=== PATIENT | female | born 1990 | race Caucasian/White ===

== ENCOUNTER 2020-06-27 04:54 | Inpatient (IN) ==
[2020-06-27] MEDS ORDERED: OXYTOCIN 30 UNITS/500 ML BAG IV PRN ×4 (06:06→16:06)
[2020-06-27] MEDS ORDERED: LACTATED RINGER'S 1,000 ML IV PRN ×2 (06:06→10:52)
[2020-06-27] MEDS ORDERED: PENICILLIN G POTASSIUM 6 MU in DEXTROSE 5% 250 ML IV ONE (06:30)
[2020-06-27 06:34] LABS: Hematocrit (blood only) 32.3 % (37-47); Hemoglobin 11.2 g/dL (12.0-16.0); Mean Corpuscular Hemoglobin 32.8 pg (25-34); Mean Corpuscular Hgb Conc 34.7 g/dL (32-36); Mean Corpuscular Volume 94.7 fL (80-100); Mean Platelet Volume 10.2 fL (7.4-10.4); Platelet Count 176 K/uL (130-400); RDW Coefficient of Variation 13.1 % (11.5-14.5); RDW Standard Deviation 44.6 fL (36.4-46.3); Red Blood Count 3.41 M/uL (4.2-5.4); White Blood Count 8.97 K/uL (4.8-10.8)
[2020-06-27] MEDS ORDERED: BUTORPHANOL TARTRATE 1 MG/ML VIAL IV PRN ×2 (07:36→10:18)
[2020-06-27 08:47] LABS: Amphetamines+Metham, Urine Neg (Neg); Barbiturates, Urine Neg (Neg); Benzodiazepine, Urine Neg (Neg); Cocaine, Urine Neg (Neg); MDMA (Ecstacy), Urine Neg (Neg); Methadone, Urine Neg (Neg); Opiate, Urine Neg (Neg); Phencyclidine, Urine Neg (Neg)
[2020-06-27] MEDS ORDERED: BUTORPHANOL TARTRATE 1 MG/ML VIAL ONE (10:20)
[2020-06-27] MEDS: PENICILLIN G POTASSIUM 3 MU in DEXTROSE 5% 100 ML IV PRN ×2 (10:53→14:44)
--- NOTE | 2020-06-27 11:02 | Obstetrical Progress Note ---
Date of Service June 27, 2020 Assessment & Plan Admission and Anticipated Discharge Date Admission Date: June 27, 2020 Subjective Admit Note 29 F P2012 at 40 weeks admitted in early labor. GBS is positive. Cervix 4/80/- 2/vertex/posterior/intact/soft. Contractions irregular. FHT CAt 1. Will start Oxytocin to augment labor. Results & Data ([facility]) Vital Signs (Past 12 Hours) Vital Signs Temp Pulse Resp BP 06/27/20 10:30 36.7 C 77 20 117/69 06/27/20 07:11 76 109/67 06/27/20 05:17 36.6 C 75 18 116/74
[2020-06-27] MEDS ORDERED: BUPIVACAINE 0.25% 30 ML VIAL ONE (11:04)
[2020-06-27] MEDS ORDERED: ePHEDrine sulfate 50 MG/ML AMP ONE (11:04)
[2020-06-27] MEDS ORDERED: fentaNYL citrate 100 MCG/2 ML VIAL ONE (11:05)
[2020-06-27] MEDS ORDERED: fentaNYL 2MCG/ML ROPIV 1.25MG/ML 100 ML BAG EPI ONE (11:05)
[2020-06-27] MEDS ORDERED: fentaNYL 2MCG/ML ROPIV 1.25MG/ML 100 ML BAG EPI PRN (11:44)
[2020-06-27] MEDS ORDERED: ePHEDrine sulfate 50 MG/ML AMP IV PRN (11:44)
[2020-06-27] MEDS ORDERED: DiphenhydrAMINE HCL 50 MG/ML VIAL IV PRN (11:44)
[2020-06-27] MEDS ORDERED: NALOXONE HCL 1 MG in SODIUM CHLORIDE 0.9% 1000ML 1,000 ML IV PRN (11:44)
[2020-06-27] MEDS ORDERED: NALOXONE HCL 0.4 MG/1 ML VIAL/CARP IV PRN (11:44)
--- NOTE | 2020-06-27 11:44 | Anesthesiology Consultation ---
Date of Service June 27, 2020 Assessment & Plan ASA ASA3 Proposed Anesthesia Anesthesia Type: Labor Epidural Risk / Benefits Reviewed With: PT / POA / Parent / Guardian, Accepts Plan and Informed Consent Obtained History Height/Weight Height: 5 ft 9 in Weight: 72.121 kg Allergies Allergy/AdvReac Type Severity Reaction Status Date / Time ziprasidone [From Alvin] AdvReac Intermediate dystonic Verified 06/27/20 05:20 reaction Medications Home Medications Medication Instructions Recorded Confirmed Last Taken vit-iron fum-folic ac 1 tab PO DAILY 06/27/20 06/27/20 06/26/20 08:00 [ Vitamin] Active Medications Generic Name Dose Route Start Last Admin Trade Name Freq PRN Reason Stop Dose Admin Butorphanol Tartrate 1 mg 06/27/20 10:18 06/27/20 10:28 Stadol IV 07/27/20 10:17 1 mg ONCE PRN Administration Pain Lactated Ringer's 1,000 mls @ 125 mls/hr 06/27/20 06:06 06/27/20 11:45 Lr IV 06/29/20 06:05 999 mls/hr .Q8H PRN Titration L&D Protocol Protocol Penicillin G Potassium 3 mu/ 106 mls @ 100 mls/hr 06/27/20 06:08 06/27/20 12:05 Dextrose IV 07/11/20 06:07 Infused Q4H PRN Titration Give until delivery Oxytocin 30 units in 500 mls @ 2 mls/hr 06/27/20 10:59 06/27/20 11:18 Pitocin IV 06/29/20 10:58 0.12 units/hr .Q24H PRN 2 mls/hr Labor Induction/Augmentation Administration Protocol 0.12 UNITS/HR Past Medical History Medical History Flank pain (Acute) H/O bipolar disorder H/O borderline personality disorder History of suicide attempt patient reports happened a few times between the ages of 17 and 19 years old Upper respiratory infection (Inactive) Exercise / Class Metabolic Activity II 4-5 Yardwork/Stairs/Walk up hill Past Family History Family History Other Family history non-contributory Past Surgical History Surgical History H/O hand surgery left hand H/O oral surgery No pertinent past surgical history Past Anesthesia History No Hx of Anesthesia Complications and No Family Hx of Anesthesia Complications History of PONV No Hx of PONV and No Hx of Motion Sickness Social History Smoking Status: Current every day smoker tobacco type: cigarettes Smoking cigarettes per day: 10 Do You Dip or Chew Tobacco: No Hx Alcohol Use: No Hx Substance Use: Yes substance use type: marijuana Last Used Substance: Days (ago) Last Used Substance Other:: used yesterday (patient states she uses this instead of zoloft) Review of Systems denies fever/cough/ colds/ chest pain/ SOB/ LILIA Constitutional: no fever and no chills Respiratory: no cough and no dyspnea denies LILIA Cardiovascular: no chest pain and no dyspnea on exertion Physical Exam Vital Signs Last Vital Signs Temp 36.7 C 06/27/20 10:30 Pulse 78 06/27/20 12:13 Resp 20 06/27/20 10:30 BP 113/65 06/27/20 12:13 Pulse Ox 100 06/27/20 12:11 ENMT Mouth: no TMJ abnormality and no dentition abnormality Thyromental Distance: > or= 3.5 Finger Breadths Mallampati Class: II Neck neck extension not limited Respiratory normal respiratory effort; no respiratory distress Auscultation: lungs clear to auscultation bilaterally Cardiovascular Rate/Rhythm: regular rate and regular rhythm Neurologic moves all extremities Psychiatric Orientation: alert and oriented x 3 Testing Laboratory Results 06/27/20 06:14
[2020-06-27] MEDS ORDERED: ONDANSETRON INJ 2 MG/ML 2 ML VIAL IV PRN (11:45)
--- NOTE | 2020-06-27 13:50 | Obstetrical Progress Note ---
Date of Service June 27, 2020 Assessment & Plan Admission and Anticipated Discharge Date Admission Date: June 27, 2020 Physical Exam Genitourinary: Manual OB Exam: + cervical dilation 5 cm, + cervical effacement 90% and + amniotic fluid clear OB Exam Monitor Tracing: + external FHT monitor used, + external uterine monitor used, + category I and + normal FHT va riability epidural working well Results & Data ([facility]) Vital Signs (Past 12 Hours) Vital Signs Temp Pulse Resp BP Pulse Ox 06/27/20 13:46 82 100 06/27/20 13:41 85 100 06/27/20 13:36 83 100 06/27/20 13:31 87 99 06/27/20 13:29 84 107/62 06/27/20 13:26 76 100 06/27/20 13:21 83 100 06/27/20 13:16 79 99/54 L 100 06/27/20 13:11 79 100 06/27/20 13:06 73 100 06/27/20 13:01 72 100 06/27/20 13:00 72 18 113/62 06/27/20 12:56 70 100 06/27/20 12:51 70 100 06/27/20 12:46 74 100 06/27/20 12:45 18 06/27/20 12:44 78 98/61 L 06/27/20 12:41 69 107/65 100 06/27/20 12:40 83 105/68 06/27/20 12:38 80 109/68 06/27/20 12:36 69 100 06/27/20 12:35 76 98/57 L 06/27/20 12:33 72 110/59 L 06/27/20 12:32 83 114/56 L 06/27/20 12:31 81 99 06/27/20 12:29 75 109/65 06/27/20 12:28 75 106/62 06/27/20 12:26 76 108/72 99 06/27/20 12:24 72 116/55 L 06/27/20 12:22 72 104/61 06/27/20 12:21 74 99 06/27/20 12:20 71 111/67 06/27/20 12:17 82 116/67 06/27/20 12:16 81 114/65 99 06/27/20 12:13 78 113/65 06/27/20 12:11 75 109/63 100 06/27/20 12:09 74 105/63 06/27/20 12:07 74 114/74 06/27/20 12:06 71 116/72 100 06/27/20 12:02 80 119/74 06/27/20 12:01 78 100 06/27/20 11:56 82 100 06/27/20 11:51 86 100 06/27/20 11:46 79 100 06/27/20 11:41 80 100 06/27/20 11:36 74 100 06/27/20 11:31 85 100 06/27/20 11:26 81 100 06/27/20 11:19 74 111/72 06/27/20 10:30 36.7 C 77 20 117/69 06/27/20 07:11 76 109/67 06/27/20 05:17 36.6 C 75 18 116/74
--- NOTE | 2020-06-27 15:55 | Delivery Summary ---
Vaginal Delivery Summary Date of Service June 27, 2020 Vaginal Delivery Summary Delivery Note live female RISA over intact perineum with delayed cord clamping and Apgars 9/9 weight pending. Cord blood obtained followed by spontaneous delivery of intact placenta. Ankles with cord wrapped and tied in [id number]. No tears. EBL 100 ml. Final sponge and instrument count are correct. Mom and baby stable.
[2020-06-27] MEDS ORDERED: ACETAMINOPHEN 325 MG TAB PO PRN (16:06)
[2020-06-27] MEDS ORDERED: bisacodyL 10 MG SUPP PR PRN (16:06)
[2020-06-27] MEDS ORDERED: SUPERCREAM 0.870% 15 GM JAR EXT PRN (16:06)
[2020-06-27] MEDS ORDERED: DIPHTHERIA/TETANUS/PERTUSSIS 0.5 ML SYR/VIAL IM ONE (16:06)
[2020-06-27] MEDS ORDERED: BENZOCAINE 20% AER SPR 82.5 GM CAN EXT PRN (16:06)
[2020-06-27] MEDS ORDERED: HYDROCORTISONE ACETATE 25 MG SUPP PR PRN (16:06)
--- NOTE | 2020-06-27 18:32 | Anesthesiology Progress Note ---
Date of Service June 27, 2020 Anesthesia Post Procedure Vital Signs Vital Signs: Temp Pulse Resp BP Pulse Ox 06/27/20 18:29 75 113/70 06/27/20 18:14 68 130/62 06/27/20 17:44 61 115/72 06/27/20 17:30 18 06/27/20 17:29 67 101/68 06/27/20 17:14 72 108/73 06/27/20 17:00 18 06/27/20 16:59 65 108/72 06/27/20 16:44 64 106/67 06/27/20 16:30 18 06/27/20 16:29 67 112/68 06/27/20 16:15 18 06/27/20 16:14 72 108/66 06/27/20 16:00 74 20 110/60 06/27/20 15:57 75 107/58 L 06/27/20 15:36 95 H 100 06/27/20 15:33 80 87 L 06/27/20 15:31 89 100 06/27/20 15:29 88 110/58 L 06/27/20 15:26 82 100 06/27/20 15:21 77 100 06/27/20 15:16 70 100 06/27/20 15:11 84 100 06/27/20 15:06 84 100 06/27/20 15:01 36.5 C 71 18 100 06/27/20 15:00 75 111/60 06/27/20 14:56 82 100 06/27/20 14:51 80 100 06/27/20 14:46 77 93/52 L 100 06/27/20 14:41 81 100 06/27/20 14:36 81 99 06/27/20 14:31 80 99/49 L 99 06/27/20 14:26 82 99 06/27/20 14:21 81 99 06/27/20 14:16 81 100 06/27/20 14:15 79 95/51 L 06/27/20 14:11 80 100 06/27/20 14:06 96 H 100 06/27/20 14:01 82 100 06/27/20 13:59 80 105/65 06/27/20 13:56 75 100 06/27/20 13:51 79 100 06/27/20 13:49 82 110/57 L 06/27/20 13:47 36.3 C L 20 06/27/20 13:46 82 100 06/27/20 13:41 85 100 06/27/20 13:36 83 100 06/27/20 13:31 87 99 06/27/20 13:29 84 107/62 06/27/20 13:26 76 100 06/27/20 13:21 83 100 06/27/20 13:16 79 99/54 L 100 06/27/20 13:11 79 100 06/27/20 13:06 73 100 06/27/20 13:01 72 100 06/27/20 13:00 72 18 113/62 06/27/20 12:56 70 100 06/27/20 12:51 70 100 06/27/20 12:46 74 100 06/27/20 12:45 18 06/27/20 12:44 78 98/61 L 06/27/20 12:41 69 107/65 100 06/27/20 12:40 83 105/68 06/27/20 12:38 80 109/68 06/27/20 12:36 69 100 06/27/20 12:35 76 98/57 L 06/27/20 12:33 72 110/59 L 06/27/20 12:32 83 114/56 L 06/27/20 12:31 81 99 06/27/20 12:29 75 109/65 06/27/20 12:28 75 106/62 06/27/20 12:26 76 108/72 99 06/27/20 12:24 72 116/55 L 06/27/20 12:22 72 104/61 06/27/20 12:21 74 99 06/27/20 12:20 71 111/67 06/27/20 12:17 82 18 116/67 06/27/20 12:16 81 18 114/65 99 06/27/20 12:13 78 18 113/65 06/27/20 12:11 75 18 109/63 100 06/27/20 12:09 74 18 105/63 06/27/20 12:07 74 18 114/74 06/27/20 12:06 71 18 116/72 100 06/27/20 12:02 80 18 119/74 06/27/20 12:01 78 100 06/27/20 11:56 82 100 06/27/20 11:51 86 06/27/20 11:46 79 06/27/20 11:41 80 06/27/20 11:36 74 06/27/20 11:31 85 06/27/20 11:26 81 06/27/20 11:19 74 20 111/72 06/27/20 10:30 36.7 C 77 20 117/69 06/27/20 07:11 36.7 C 76 20 109/67 06/27/20 05:17 36.6 C 75 18 116/74 Pain Intensity Bilateral Abdomen: Pain Intensity: 3 Transfer of Care Handoff Completed per policy Notes Mental Status: alert / awake / arousable and participated in evaluation Patient Amnestic to Procedure: Yes Nausea / Vomiting: adequately controlled Pain: adequately controlled Airway Patency, RR, SpO2: stable & adequate BP & HR: stable & adequate Hydration State: stable & adequate Anesthetic Complications: no major complications apparent and Pt Satisfied with anesthetic care
[2020-06-27] MEDS: IBUPROFEN 600 MG TAB PO PRN (19:02)
[2020-06-27] MEDS: DOCUSATE SODIUM 100 MG CAP PO SCH (20:53)
[2020-06-28] MEDS: IBUPROFEN 600 MG TAB PO PRN ×3 (05:28→15:29)
[2020-06-28 07:17] LABS: Hematocrit (blood only) 34.8 % (37-47); Mean Corpuscular Hemoglobin 30.7 pg (25-34); Mean Corpuscular Hgb Conc 31.6 g/dL (32-36); Mean Corpuscular Volume 97.2 fL (80-100); Mean Platelet Volume 10.8 fL (7.4-10.4); Platelet Count 189 K/uL (130-400); RDW Coefficient of Variation 13.1 % (11.5-14.5); RDW Standard Deviation 46.4 fL (36.4-46.3); Red Blood Count 3.58 M/uL (4.2-5.4); White Blood Count 8.56 K/uL (4.8-10.8)
[2020-06-28] MEDS ORDERED: PRENATAL VITAMIN 1 TAB PO SCH (08:00)
[2020-06-28] MEDS: DOCUSATE SODIUM 100 MG CAP PO SCH (08:20)
[2020-06-28] MEDS ORDERED: NON-FORMULARY MEDICATION (Prenatal Vit-Iron Fum-Folic Ac [Prenatal Vitamin] 1 TAB) PO SCH (09:00)
--- NOTE | 2020-06-28 10:07 | Obstetrical Progress Note ---
Date of Service June 28, 2020 Assessment & Plan (1) Normal course: PPD #1 Pt doing well Wishes to be discharged home today Subjective Ambulation: ambulating normally Voiding: no voiding problems Passing Gas:: Yes Diet Tolerance:: regular diet Lochia:: Small Feeding Type:: breast feeding Review of Systems All systems reviewed & are unremarkable except as noted in HPI & below Physical Exam Constitutional WD/WN, vitals as above well developed and well nourished Eyes PERRL, conjunctivae normal, anicteric sclerae Neck trachea midline, no thyromegaly Respiratory normal respiratory effort, lungs clear to auscultation Auscultation: no crackles, no rales and no wheezes Cardiovascular RRR, no murmur, no edema Gastrointestinal (Abdomen) normal bowel sounds, soft, nontender, no hepatosplenomegaly Uterus is below umbilicus Musculoskeletal no cyanosis or clubbing, extremities motor strength 5/5 Skin no rashes, warm and dry Neurologic patellar DTR's 2+ bilat, sensation intact Psychiatric A+Ox3, euthymic affect Genitourinary normal external appearance Results & Data Vital Signs (Past 12 Hours) Vital Signs Temp Pulse Resp BP Pulse Ox 06/28/20 07:20 36.7 C 71 18 112/74 06/28/20 04:37 36.6 C 66 16 100/65 99 06/28/20 00:02 36.6 C 107 H 18 107/71 98
[2020-06-28] MEDS ORDERED: bisacodyL 5 MG TABEC PO SCH (20:00)
[2020-06-29 07:43] LABS: Marijuana Quant, GCMS Urine 238 ng/mL (<5)
== END 2020-06-28 17:09 | disposition home or self-care (01) | DRG 807 ==
LOC: OPB 04:54 → 4S1 05:02 → 4S2 19:27

== ENCOUNTER 2020-07-27 09:32 | Inpatient (IN) ==
--- NOTE | 2020-07-27 09:48 | Emergency Department Note ---
Impression & Plan Acute abdominal pain in left flank, Calculus of distal left ureter, Calculus of distal right ureter ED Provider Note CHIEF COMPLAINT: Left leg pain, urinary symptoms HISTORY OF PRESENTING ILLNESS: This is a 29-year-old female who presents to the emergency department by private vehicle with complaints of left flank pain that started this morning. Patient states yesterday she felt some urinary symptoms of urgency and frequency and thought she was developing a UTI. This morning she woke up with severe pain in her left side that radiates to her left lower abdomen. She states the pain is constant, sharp and stabbing, and rates the pain a 6/10. She took ibuprofen which did help with the pain somewhat. She denies any nausea or vomiting, diarrhea, constipation, vaginal discharge or ab normal bleeding. She denies any fevers but states she has had some chills. She knows that she is 1 month from a normal vaginal delivery and has been doing well recovering from this. She notes a history of kidney stones in the past, she states these were diagnosed while she was , but she never had any follow-up on this and does not really know what happened there. She has nev er seen a urologist. She denies any other symptoms of chest pain, shortness of breath, cough or hemoptysis, numbness/tingling or weakness in the lower extremities, bowel or bladder dysfunction, or any other complaints. REVIEW OF SYSTEMS: A complete 10 point review of systems was reviewed with the patient with pertinent positives and negatives as per history of present illness. All else were negative. PAST MEDICAL HISTORY: Anxiety, bipolar disorder, borderline personality disorder, kidney stones SOCIAL HISTORY: Lives at home ALLERGIES: Reviewed in chart with the patient PHYSICAL EXAM: CONSTITUTIONAL: Pleasant and cooperative. Nontoxic-appearing and in no acute distress. Well appearing and well nourished. HEENT: Normocephalic, atraumatic. NECK: Supple, full active range of motion without discomfort. RESPIRATORY: Clear to auscultation bilaterally with no wheezing, crackles, rhonchi or stridor. Equal expansion bilaterally. CARDIOVASCULAR: Regular rate and rhythm with no murmurs, rubs or gallops. Normal peripheral perfusion. No edema. GASTROINTESTINAL: Mildly tender to palpation in the left flank and left lower quadrant, no rebound tenderness or guarding. Abdomen is otherwise nontender, soft and nondistended. No palpable masses or HSM. Bowel sounds present in all quadrants. Mild left-sided CVA tenderness to percussion, no right-sided CVA tenderness. MUSCULOSKELETAL: Full range of motion of all joints without discomfort. INTEGUMENTARY: No rash or other significant dermatologic conditions noted. NEUROLOGIC: Alert and oriented X 4 with normal affect. Normal strength and sensation in all 4 extremities. Normal speech. Normal gait observed. ED COURSE AND MEDICAL DECISION MAKING: CC: Patient presenting with complaint of left flank pain, urinary symptom DIFFERENTIAL DIAGNOSIS: Includes, but not limited to UTI, pyelonephritis, ureteral calculus, diverticulitis, pancreatitis, ovarian cyst, ovarian torsion, complication, ectopic , among others. INTERPRETATION OF LABS: No leukocytosis, no anemia, normal platelets, no significant electrolyte abnormalities, normal renal function, normal liver enzymes and lipase. Serum negative. UA shows large blood and appears contaminated. Repeat urinalysis was performed by catheter specimen, this does not appear to be infected. A urine culture is pending. IMAGING: ABDOMEN AND PELVIS CT WITH IV CONTRAST CT DOSE: 274.40 mGy.cm HISTORY: L abd/flank pain, hx kid stones, 1 mon PP TECHNIQUE: Multiaxial CT images of the abdomen and pelvis were performed following the use of intravenous contrast. A dose lowering technique was utilized adhering to the principles of ALARA. COMPARISON STUDY: Renal ultrasound 05/24/2020. FINDINGS: The lung bases are clear. No pneumoperitoneum. No pneumatosis. No fractures within the visualized osseous structures. The liver, gallbladder, pancreas, spleen, and adrenal glands are unremarkable. There is a left retroaortic renal vein. No retroperitoneal lymphadenopathy. Bladder is not well- distended. This may account for the mild bladder wall thickening. Mildly enlarged and slightly heterogeneous uterus. This may be secondary to patient's post gravid state. Trace pelvic free fluid. Moderate well-formed stool within the colon. No bowel wall thickening or obstruction. No right hydronephrosis. However, there is a mildly dilated right ureter likely secondary to an obstructing 5 mm stone within the distal right ureter best seen on image 334. T his stone is approximately 8 cm from the right ureterovesical junction. There is also mild left hydroureteronephrosis secondary to an obstructing 5 mm stone within the distal left ureter. This stone is approximately 2 cm from the left ureterovesical junction. Delayed left nephrogram due to the obstructing stone. There is a 3 mm stone within the left kidney. IMPRESSION: 1. Bilateral distal ureteral stones as described above resulting in minimal right and mild left hydronephrosis. 2. Left-sided nephrolithiasis. 3. Mildly enlarged and slightly heterogeneous uterus. This may be secondary to the patient's post gravid state. 4. Trace pelvic free fluid. MEDICATION RECONCILIATION: I attest that I have personally reviewed the patient's current medication list. INITIAL VITAL SIGNS REVIEW: I reviewed the patient's initial vital signs and interpret them as follows: T: Afebrile; BP: Normotensive; HR: Within normal limits; RR: Within normal limits; Pulse Ox: Within normal limits on room air. Blood pressure screening: The patient was found to have normal blood pressure on screening and does not require follow-up for repeat blood pressure check. MDM SUMMARY: Patient was evaluated at bedside, history and physical exam performed. Patient is alert and oriented, in no acute distress, but appears uncomfortable from pain, tearful. She is resting in the stretcher. She is afebrile and nontoxic-appearing. She has left-sided CVA tenderness, flank pain and left lower quadrant pain on ex am. No acute abdomen. Urine sample at bedside noted to have gross hematuria. She does report a possible history of kidney stones, although she states she was never followed up for this and she also notes that she is 1 month . She denies any fevers or chills. Orders were placed at bedside for labs, UA and urine culture, IV fluid bolus for hydration, IV Toradol for pain, CT abdomen/pelvis with IV contrast to evaluate for abdominal/flank pain. Patient discussed with Dr. Miller, who agrees with my assessment, plan, and disposition. Labs and imaging reviewed as above, labs are fairly unremarkable, no leukocytosis, normal renal function. She is not . Initial UA appears contaminated. Patient reassessed, she states her pain is not any better after the Toradol, she was given [address] imaging shows bilateral obstructing distal ureteral stones that each measure about 5 mm with resulting mild hydronephrosis, worse on the left. Patient was reassessed again and updated on all of her results. She is sitting up on the side of the stretcher, rocking in pain and crying. She states the morphine did not help at all. I discussed the option of admission with the patient, given her bilateral obstructing stones and her severe pain that has been difficult to control, she was agreeable to this. Given the contaminated appearing urine, a repeat urinalysis was performed under sterile straight catheterization, this was reviewed and does not appear to be infected. She has not had any fevers and she has no leukocytosis, I do not suspect an infected stone. Will defer decision regarding any antibiotics to the inpatient team. I [facility] who agrees to evaluate the patient for admission. The patient was updated regarding this plan. She is more comfortable after receiving 1 mg IV Dilaudid, will continue to monitor. The patient was stable at time of admission. The chart was completed utilizing [employer] Speech voice recognition software. Grammatical errors, random word insertions, pronoun errors, and incomplete sentences are an occasional consequence of this system due to software limit ations, ambient noise, and hardware issues. Any formal questions or concerns about the content, text, or information contained within the body of this dictation should be directly addressed to the nurse practitioner for clarification. Past Med/Surg History Medical History Flank pain H/O bipolar disorder H/O borderline personality disorder History of suicide attempt patient reports happened a few times between the ages of 17 and 19 years old Upper respiratory infection Surgical History H/O hand surgery left hand H/O oral surgery Family History Other Family history non-contributory Social History Smoking Status: Current every day smoker Tobacco Type: Cigarettes Cigarettes Per Day: 10; Hx Alcohol Use: No Hx Substance Use: Yes Last Used Substance: Days (ago) Last Used Substance Other:: used yesterday (patient states she uses this instead of zoloft) Preferred Language: [place] Communication Ability: Effective 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 Beliefs That Will Affect Care: None marital status: Current Living Situation: Spouse and Family current occupational status: unemployed Feels Safe at Home: Yes Allergies Allergies Allergy/AdvReac Type Severity Reaction Status Date / Time ziprasidone [From Alvin] AdvReac Intermediate dystonic Verified 07/27/20 11:50 reaction Home Meds Home Medications Medication Instructions Recorded Confirmed Vitamin 1 tab PO DAILY 06/27/20 07/27/20 acetaminophen [Tylenol] 650 mg PO QID PRN 07/27/20 07/27/20 biotin 1,000 mcg PO DAILY 07/27/20 07/27/20 ibuprofen 600 mg PO Q4H PRN 07/27/20 07/27/20 Results & Data (ED) Vital Signs Vital Signs - 24 hr 07/27/20 09:40 07/27/20 10:17 Temperature 36.8 C Temperature Source Oral Pulse Rate 74 Respiratory Rate 20 Respiratory Effort / Characteristics Non-Labored Spontaneous Respiratory Depth Normal Respiratory Pattern Regular Blood Pressure 119/78 Blood Pressure Mean 91 Blood Pressure Position Sitting Pulse Oximetry 100 Oxygen Delivery Method Room Air Room Air Sepsis Recent Fever Within 48 Hours No Sepsis New/Unexplained Change in Mental Status N/A Sepsis Action Taken by Nursing No Action Required Laboratory Data Result diagrams: 07/27/20 10:05 07/27/20 10:05 Lab Results 07/27/20 07/27/20 07/27/20 Range/Units 09:55 10:05 10:05 WBC 8.18 (4.8-10.8) K/uL RBC 4.49 (4.2-5.4) M/uL Hgb 14.4 (12.0-16.0) g/dL Hct 43.1 (37-47) % MCV 96.0 (80-100) fL MCH 32.1 (25-34) pg MCHC 33.4 (32-36) g/dL RDW Std Deviation 43.9 (36.4-46.3) fL RDW Coeff of Dorota 12.5 (11.5-14.5) % Plt Count 203 (130-400) K/uL MPV 10.5 H (7.4-10.4) fL Immature Gran % (Auto) 0.1 % Neut % (Auto) 66.0 % Lymph % (Auto) 26.3 % [place] % (Auto) 5.7 % Eos % (Auto) 1.8 % Baso % (Auto) 0.1 % Neut # (Auto) 5.39 (1.4-6.5) K/uL Lymph # (Auto) 2.15 (1.2-3.4) K/uL [place] # (Auto) 0.47 (0.11-0.59) K/uL Eos # (Auto) 0.15 (0-0.5) K/uL Baso # (Auto) 0.01 (0-0.2) K/uL Immature Gran # (Auto) 0.01 (0.00-0.02) K/uL Sodium 140 (136-145) mmol/L Potassium 3.6 (3.5-5.1) mmol/L Chloride 109 H (98-107) mmol/L Carbon Dioxide 24 (21-32) mmol/L Anion Gap 7.0 (3-11) BUN 15 (7-18) mg/dl Creatinine 0.91 (0.6-1.2) mg/dl Est Cr Clr Drug Dosing 89.9 ml/min Est GFR ( Amer) 99.5 Est GFR (Non-Af Amer) 85.9 BUN/Creatinine Ratio 16.4 (10-20) Glucose 98 (70-99) mg/dl Calcium 9.2 (8.5-10.1) mg/dl Total Bilirubin 0.2 (0.2-1) mg/dl AST 12 L (15-37) U/L ALT 18 (12-78) U/L Alkaline Phosphatase 58 (45-117) U/L Total Protein 7.5 (6.4-8.2) gm/dl Albumin 3.9 (3.4-5.0) gm/dl Globulin 3.6 (2.5-4.0) gm/dl Albumin/Globulin Ratio 1.1 (0.9-2) Lipase 100 (73-393) U/L HCG, Qual (Negative) Urine Color [place] Urine Appearance Cloudy A (Clear) Urine pH 5.5 (4.5-7.5) Ur Specific [place] 1.020 (1.000-1.030) Urine Protein 1+ H (Negative) Urine Glucose (UA) Negative (Negative) Urine Ketones Negative (Negative) Urine Blood 3+ H (Negative) Urine Nitrite Negative (Negative) Urine Bilirubin Negative (Negative) Urine Urobilinogen Negative (Negative) Ur Leukocyte Esterase 1+ H (Negative) Urine WBC (Auto) 5-10 H (0-5) /hpf Urine RBC (Auto) >30 H (0-4) /hpf U Hyaline Cast (Auto) 1-5 (0-5) /lpf U Epithel Cells (Auto) >30 H (0-5) /lpf Urine Bacteria (Auto) Negative (Negative) 07/27/20 07/27/20 Range/Units 10:05 12:31 WBC (4.8-10.8) K/uL RBC (4.2-5.4) M/uL Hgb (12.0-16.0) g/dL Hct (37-47) % MCV (80-100) fL MCH (25-34) pg MCHC (32-36) g/dL RDW Std Deviation (36.4-46.3) fL RDW Coeff of Dorota (11.5-14.5) % Plt Count (130-400) K/uL MPV (7.4-10.4) fL Immature Gran % (Auto) % Neut % (Auto) % Lymph % (Auto) % [place] % (Auto) % Eos % (Auto) % Baso % (Auto) % Neut # (Auto) (1.4-6.5) K/uL Lymph # (Auto) (1.2-3.4) K/uL [place] # (Auto) (0.11-0.59) K/uL Eos # (Auto) (0-0.5) K/uL Baso # (Auto) (0-0.2) K/uL Immature Gran # (Auto) (0.00-0.02) K/uL Sodium (136-145) mmol/L Potassium (3.5-5.1) mmol/L Chloride (98-107) mmol/L Carbon Dioxide (21-32) mmol/L Anion Gap (3-11) BUN (7-18) mg/dl Creatinine (0.6-1.2) mg/dl Est Cr Clr Drug Dosing ml/min Est GFR ( Amer) Est GFR (Non-Af Amer) BUN/Creatinine Ratio (10-20) Glucose (70-99) mg/dl Calcium (8.5-10.1) mg/dl Total Bilirubin (0.2-1) mg/dl AST (15-37) U/L ALT (12-78) U/L Alkaline Phosphatase (45-117) U/L Total Protein (6.4-8.2) gm/dl Albumin (3.4-5.0) gm/dl Globulin (2.5-4.0) gm/dl Albumin/Globulin Ratio (0.9-2) Lipase (73-393) U/L HCG, Qual Negative (Negative) Urine Color Dark Yellow Urine Appearance Clear (Clear) Urine pH 5.0 (4.5-7.5) Ur Specific [place] > 1.045 H (1.000-1.030) Urine Protein Negative (Negative) Urine Glucose (UA) Negative (Negative) Urine Ketones Trace H (Negative) Urine Blood 3+ H (Negative) Urine Nitrite Negative (Negative) Urine Bilirubin Negative (Negative) Urine Urobilinogen Negative (Negative) Ur Leukocyte Esterase Negative (Negative) Urine WBC (Auto) 1-5 (0-5) /hpf Urine RBC (Auto) >30 H (0-4) /hpf U Hyaline Cast (Auto) 1-5 (0-5) /lpf U Epithel Cells (Auto) 10-20 H (0-5) /lpf Urine Bacteria (Auto) Negative (Negative) Administered Medications Ceftriaxone Sodium 1,000 mg/ (Dextrose) 50 mls @ 100 mls/hr IV Q24H [facility]; Protocol Stop: 08/06/20 13:44 Last Admin: 07/27/20 14:08 Dose: 100 mls/hr Documented by: [id number] Discontinued Medications Hydromorphone HCl (Hydromorphone Inj 1 Mg/Ml Syringe) 1 mg IV NOW STA Stop: 07/27/20 11:54 Last Admin: 07/27/20 12:06 Dose: 1 mg Documented by: [id number] Sodium Chloride (Nss 1000ml) 1,000 mls @ 999 mls/hr IV .Q1H1M ONE Stop: 07/27/20 10:57 Last Infusion: 07/27/20 11:37 Dose: 0 mls/hr Documented by: [id number] Admin: 07/27/20 10:12 Dose: 999 mls/hr Documented by: [id number] Ioversol (Ioversol 100ml) 92 ml IV ONCE ONE Stop: 07/27/20 10:59 Last Admin: 07/27/20 10:59 Dose: 92 ml Documented by: [id number] Ketorolac Tromethamine (Ketorolac Tromethamine 15 Mg/Ml Vial) 15 mg IV NOW STA Stop: 07/27/20 09:58 Last Admin: 07/27/20 10:12 Dose: 15 mg Documented by: [id number] Morphine Sulfate (Morphine Sulfate 4 Mg/Ml 1 Ml Carp\Vial) 4 mg IV NOW STA Stop: 07/27/20 11:03 Last Admin: 07/27/20 11:06 Dose: 4 mg Documented by: [id number] Tamsulosin HCl (Tamsulosin Hcl 0.4 Mg Cap) 0.4 mg PO NOW ONE Stop: 07/27/20 11:15 Last Admin: 07/27/20 11:35 Dose: 0.4 mg Documented by: [id number] Discharge Plan Visit Data Chief Complaint: Abdominal Pain Stated Complaint: LEFT SIDE ABD PAIN ED Provider: Sulaiman Miller ED Midlevel Provider: April Palmer Discharge Problem: Acute abdominal pain in left flank, Calculus of distal left ureter, Calculus of distal right ureter Forms Stand Alone Forms: [facility] Prescriptions Prescriptions: No Action Vitamin 27 mg iron- 0.8 mg Tablet 1 tab PO DAILY RF: 0 acetaminophen [Tylenol] 325 mg Tablet 650 mg PO QID PRN (Reason: Pain) RF: 0 biotin 1,000 mcg Tablet,Chewable 1,000 mcg PO DAILY RF: 0 ibuprofen 600 mg tablet 600 mg PO Q4H PRN (Reason: fever/pain) RF: 0 Referrals Referrals: Jono Sheets MD [Physician] - PCP,NO [Primary Care Provider] -
[2020-07-27] MEDS ORDERED: KETOROLAC TROMETHAMINE 15 MG/ML VIAL IV STA (09:57)
[2020-07-27] MEDS ORDERED: SODIUM CHLORIDE 0.9% 1000ML 1,000 ML IV ONE (09:57)
[2020-07-27 10:19] LABS: Basophils # (auto) 0.01 K/uL (0-0.2); Basophils % (auto) 0.1 %; Eosinophils # (auto) 0.15 K/uL (0-0.5); Eosinophils % (auto) 1.8 %; Hematocrit (blood only) 43.1 % (37-47); Hemoglobin 14.4 g/dL (12.0-16.0); Immature Granulocytes # (auto) 0.01 K/uL (0.00-0.02); Immature Granulocytes % (auto) 0.1 %; Lymphocytes # (auto) 2.15 K/uL (1.2-3.4); Lymphocytes % (auto) 26.3 %; Mean Corpuscular Hemoglobin 32.1 pg (25-34); Mean Corpuscular Hgb Conc 33.4 g/dL (32-36); Mean Platelet Volume 10.5 fL (7.4-10.4); Monocytes # (auto) 0.47 K/uL (0.11-0.59); Monocytes % (auto) 5.7 %; Neutrophils # (auto) 5.39 K/uL (1.4-6.5); Platelet Count 203 K/uL (130-400); RDW Coefficient of Variation 12.5 % (11.5-14.5); RDW Standard Deviation 43.9 fL (36.4-46.3); Red Blood Count 4.49 M/uL (4.2-5.4); White Blood Count 8.18 K/uL (4.8-10.8)
[2020-07-27 10:27] LABS: Appearance Urine Cloudy (Clear); Bacteria Urine Automated Negative (Negative); Blood Urine 3+ (Negative); Color Urine Orange; Epithelial Cell Urine Auto >30 /lpf (0-5); Glucose Urine UA Negative (Negative); Ketones Urine Negative (Negative); Leukocyte Esterase Urine 1+ (Negative); Nitrite Urine Negative (Negative); Protein Urine 1+ (Negative); RBC Urine Automated >30 /hpf (0-4); Urobilinogen Urine Negative (Negative); pH Urine 5.5 (4.5-7.5)
[2020-07-27 10:34] LABS: Bilirubin Urine Negative (Negative); Ictotest Urine Negative (Negative)
[2020-07-27 10:37] LABS: Albumin Level 3.9 gm/dl (3.4-5.0); BUN Creatinine Ratio 16.4 (10-20); Calcium 9.2 mg/dl (8.5-10.1); Creatinine Clr Calc Pharmacy 89.9 ml/min; Est GFR (African American) 99.5; Est GFR (Non-African American) 85.9; Potassium 3.6 mmol/L (3.5-5.1)
[2020-07-27 10:38] LABS: Pregnancy Test, Serum Negative (Negative)
[2020-07-27 10:40] LABS: Albumin Globulin Ratio 1.1 (0.9-2); Bilirubin,Total 0.2 mg/dl (0.2-1); Globulin 3.6 gm/dl (2.5-4.0); Total Protein 7.5 gm/dl (6.4-8.2)
[2020-07-27] MEDS ORDERED: IOVERSOL 100ml IV ONE (10:58)
[2020-07-27] MEDS ORDERED: MoRPHine SULFATE 4 MG/ML 1 ML CARP\\VIAL IV STA (11:02)
--- NOTE | 2020-07-27 11:10 | CT Scan Report ---
ABDOMEN AND PELVIS CT WITH IV CONTRAST CT DOSE: 274.40 mGy.cm HISTORY: L abd/flank pain, hx kid stones, 1 mon PP TECHNIQUE: Multiaxial CT images of the abdomen and pelvis were performed following the use of intrave nous contrast. A dose lowering technique was utilized adhering to the principles of ALARA. COMPARISON STUDY: Renal ultrasound 05/24/2020. FINDINGS: The lung bases are clear. No pneumoperitoneum. No pneumatosis. No fractures within the visu alized osseous structures. The liver, gallbladder, pancreas, spleen, and adrenal glands are unremarka ble. There is a left retroaortic renal vein. No retroperitoneal lymphadenopathy. Bladder is not well- distended. This may account for the mild bladder wall thickening. Mildly enlarged and slightly hetero geneous uterus. This may be secondary to patient's post gravid state. Trace pelvic free fluid. Modera te well-formed stool within the colon. No bowel wall thickening or obstruction. No right hydronephros is. However, there is a mildly dilated right ureter likely secondary to an obstructing 5 mm stone wit hin the distal right ureter best seen on image 334. This stone is approximately 8 cm from the right u reterovesical junction. There is also mild left hydroureteronephrosis secondary to an obstructing 5 m m stone within the distal left ureter. This stone is approximately 2 cm from the left ureterovesical junction. Delayed left nephrogram due to the obstructing stone. There is a 3 mm stone within the left kidney. IMPRESSION: 1. Bilateral distal ureteral stones as described above resulting in minimal right and mild left hydro nephrosis. 2. Left-sided nephrolithiasis. 3. Mildly enlarged and slightly heterogeneous uterus. This may be secondary to the patient's post gra vid state. 4. Trace pelvic free fluid. ACT 112: Negative or not required by law. Electronically signed by: Héctor Gama M.D. 07/27/2020 11:08 AM
[2020-07-27] MEDS ORDERED: TAMSULOSIN HCL 0.4 MG CAP PO ONE (11:14)
[2020-07-27] MEDS ORDERED: HYDROmorphone INJ 1 MG/ML SYRINGE IV STA (11:53)
[2020-07-27 12:48] LABS: Appearance Urine Clear (Clear); Bacteria Urine Automated Negative (Negative); Bilirubin Urine Negative (Negative); Blood Urine 3+ (Negative); Color Urine Dark Yellow; Glucose Urine UA Negative (Negative); Ketones Urine Trace (Negative); Leukocyte Esterase Urine Negative (Negative); Nitrite Urine Negative (Negative); Protein Urine Negative (Negative); RBC Urine Automated >30 /hpf (0-4); Specific Gravity Urine > 1.045 (1.000-1.030); Urobilinogen Urine Negative (Negative)
--- NOTE | 2020-07-27 13:43 | History & Physical Report ---
Date of Service July 27, 2020 Assessment & Plan (1) Calculus of distal right ureter: (2) Calculus of distal left ureter: (3) Hydronephrosis, left: (4) Renal colic: Pt is 29 y/o F with PMH anxiety presented to ER with c/o Left flank pain today. Pt is one month post vaginal delivery. Yesterday started with urinary frequency and urgency without any dysuria or noted hematuria. Today with sudden onset left flank pain with radiation LLQ. Denies fever, N/V. Pt without reported urinary retention. In ER pt afebrile, vitals stable. No leukocytosis, BUN: 15, Cr: 0.9. Straight cath UA: 3+blood, >30 RBC, 10-[address] Abd/pelvis: 1. Bilateral distal ureteral stones as described above resulting in minimal right and mild left hydronephrosis. 2. Left-sided nephrolithiasis. -In ER given 1L NSS, Toradol 15mg IV, Morphine 4mg IV, Dilaudid 1mg IV, Flomax 0.4mg po -Currently pt comfortable and pain controlled -Urine culture pending -Strain all urine -NPO for now -IVF -Pain control -Rocephin IV -Consult urology, spoke with Jacki GUEVARA and is aware and requests pt NPO for now until seen by urology and requests IV antibiotics -CBC, BMP in am DVT Prophylaxis -Low risk - Ambulate Full Code Pt does not have PCP for routine care Pt was seen and care coordinated with Dr Wright. See addendum History of Present Illness Chief Complaint: Left flank pain Primary Care Provider: NO PCP Pt is 29 y/o F with PMH anxiety presented to ER with c/o Left flank pain today. Pt is one month post vaginal delivery. She states yesterday started with some urinary frequency and urgency without any dysuria or noted hematuria. She states has some residual slight pink colored discharge s/p vaginal delivery however that is almost resolved. Today with sudden onset left flank pain with radiation LLQ. Upon ER arrival noted some hematuria and dysuria. Has been doing well since her delivery without abdominal pain or other symptoms until today. H/O kidney stone with prior that was able to self expel. Pt not currently . Denies fever/chills, diaphoresis, N/V/D/C, GARCIA, dizziness, syncope, vision changes, neck pain, CP, SOB, orthopnea, palpitations, cough, sore throat, choking, otalgia, rhinorrhea, paresthesias, weakness, extremity weakness, extremity edema, rashes. Allergies Allergy/AdvReac Type Severity Reaction Status Date / Time ziprasidone [From Alvin] AdvReac Intermediate dystonic Verified 07/27/20 11:50 reaction Home Medications Home Medications Medication Instructions Recorded Confirmed Type Vitamin 1 tab PO DAILY 06/27/20 07/27/20 History acetaminophen [Tylenol] 650 mg PO QID PRN 07/27/20 07/27/20 History biotin 1,000 mcg PO DAILY 07/27/20 07/27/20 History ibuprofen 600 mg PO Q4H PRN 07/27/20 07/27/20 History Past Med/Surg History Medical History (Updated 07/27/20 @ 17:33 by Jono Sheets MD) Flank pain H/O bipolar disorder H/O borderline personality disorder History of suicide attempt patient reports happened a few times between the ages of 17 and 19 years old Nephrolithiasis Upper respiratory infection Surgical History H/O hand surgery left hand H/O oral surgery Family History Other Family history non-contributory Social History Smoking Status: Current every day smoker Tobacco Type: Cigarettes Cigarettes Per Day: half pack- pack; Do You Dip or Chew Tobacco: No; Tobacco Cessation Education Requested by Patient: No Hx Alcohol Use: No Hx Substance Use: No Preferred Language: Hebrew Communication Ability: Effective Papier Mache Molder Required: No Beliefs That Will Affect Care: None marital status: Current Living Situation: Family current occupational status: unemployed Other Information That Helps Us Care for You: No Feels Safe at Home: Yes Safety Concerns: Feels Safe At This Time Review of Systems Review of Systems: All systems reviewed & are unremarkable except as noted in HPI & below Physical Exam Physical Exam: General: no distress at this time, WDWN Head: normocephalic, atraumatic Eyes: PERRL, EOM's intact, conjunctiva non-injected, anicteric ENT: normal inspection external ears, nose, mucous membranes moist Neck: supple, trachea midline Lungs: clear, no respiratory distress, no wheezing/rhonchi/rales CV: RRR, no murmur, no pretibial edema Abd: normal BS, soft, non-tender to palpation at this time, no CVA tenderness to percussion at this time Ext: no cyanosis, no calf tenderness Neuro: A&O x 3, no focal deficits noted, normal affect Skin: warm, dry Results & Data [facility] Vital Signs (Past 12 Hours) Vital Signs Temp Pulse Resp BP Pulse Ox 07/27/20 09:40 36.8 C 74 20 119/78 100 Laboratory Results Short CBC 07/27/20 Range/Units 10:05 WBC 8.18 (4.8-10.8) K/uL Hgb 14.4 (12.0-16.0) g/dL Hct 43.1 (37-47) % Plt Count 203 (130-400) K/uL BMP 07/27/20 10:05 Sodium 140 Potassium 3.6 Chloride 109 H Carbon Dioxide 24 BUN 15 Creatinine 0.91 Glucose 98 Calcium 9.2 Liver Function 07/27/20 Range/Units 10:05 Total Bilirubin 0.2 (0.2-1) mg/dl AST 12 L (15-37) U/L ALT 18 (12-78) U/L Alkaline Phosphatase 58 (45-117) U/L Albumin 3.9 (3.4-5.0) gm/dl Urine 07/27/20 07/27/20 Range/Units 09:55 12:31 Urine Color [place] Dark Yellow Urine Appearance Cloudy A Clear (Clear) Urine pH 5.5 5.0 (4.5-7.5) Ur Specific [place] 1.020 > 1.045 H (1.000-1.030) Urine Protein 1+ H Negative (Negative) Urine Glucose (UA) Negative Negative (Negative) Diagnostic Findings CT ABD/PELVIS: IMPRESSION: 1. Bilateral distal ureteral stones as described above resulting in minimal right and mild left hydronephrosis. 2. Left-sided nephrolithiasis. 3. Mildly enlarged and slightly heterogeneous uterus. This may be secondary to the patient's post gravid state. 4. Trace pelvic free fluid. Supervising Physician Co-Signing Physician Notes Attending Addendum: date of service 07/27/20 care coordinated with BEBETO Cronin please refer to her notes for full details, I agree with her notes patient seen and examined, records reviewed by myself as well on exam, patient seen sitting up in bed, not in distress states she feels that the BL flank pain is adequately controlled with PRN analgesics no hematuria, dysuria, chills, nausea no other symptoms VS noted and reviewed oriented x 3, not in distress, speaks in sentences with no effort nor accessory muscle use normal rate, regular rhythm, no murmurs clear breath sounds bilaterally non distended, soft, nontender no CVA tenderness no bipedal edema, erythema, warmth no neuro deficits WBC 8.1 Hg [address] abdomen/pelv: No right hydronephrosis. However, there is a mildly dilated right ureter likely secondary to an obstructing 5 mm stone within the distal right ureter best seen on image [id number]. This stone is approximately 8 cm from the right ureterovesical junction. There is also mild left hydroureteronephrosis secondary to an obstructing 5 mm stone within the distal left ureter. This stone is approximately 2 cm from the left ureterovesical junction. Delayed left nephrogram due to the obstructing stone. There is a 3 mm stone within the left kidney. ASSESSMENT AND PLAN 29 year old female 1 month post , history of anxiety presenting with BL flank pain. BILATERAL URETERAL STONES, 5MM, WITH LEFT HYDROURETERONEPHROSIS no fever, no signs of sepsis renal function within raz limits Urology consulted, NPO post midnight for possible urologic interverntion IV fluids, flomax, PRN analgesics 1 MONTH POST patient not other diagnoses and plan of care as per BEBETO Cronin notes Anthony Wright MD
[2020-07-27] MEDS ORDERED: cefTRIAXone SODIUM 1,000 MG in DEXTROSE 5% 50 ML IV SCH (13:45)
[2020-07-27] MEDS ORDERED: cefTRIAXone SODIUM 1000MG/50ML D5W IV ONE (14:07)
[2020-07-27] MEDS ORDERED: OXYCODONE HCL IR 5 MG TAB (IMMEDIATE RELEASE) PO PRN ×2 (16:28→20:57)
[2020-07-27] MEDS ORDERED: ONDANSETRON INJ 2 MG/ML 2 ML VIAL IV PRN (16:28)
[2020-07-27] MEDS ORDERED: POLYETHYLENE (MIRALAX) 17 GM PACK PO PRN (16:28)
[2020-07-27] MEDS ORDERED: ACETAMINOPHEN 325 MG TAB PO PRN (16:28)
[2020-07-27] MEDS ORDERED: KETOROLAC TROMETHAMINE 15 MG/ML VIAL IV PRN (16:28)
[2020-07-27] MEDS: SODIUM CHLORIDE 0.9% 1000ML 1,000 ML IV SCH (17:11)
--- NOTE | 2020-07-27 17:31 | Urology Consultation ---
Date of Consultation July 27, 2020 Assessment & Plan (1) Nephrolithiasis: Assessment 1. Bilateral ureteral calculi Patient's pain is controlled. She has no fevers chills or signs of sepsis. She has been voiding. Her creatinine is 0.9And her white blood cell count is 8 Recommend continued pain medication for pain control Broad-spectrum antibioticCoverage Since her pain is controlled and she is showing no signs of sepsis we will plan on proceeding to the OR tomorrow for cystoscopy retrogrades bilateral ureteroscopy stone extractions and Bilateral stent placement.If she develops fever chills or any signs of sepsis tonight will need emergent stent placement History of Present Illness Attending Physician: Anthony Wright MD History of Present Illness Patient is a 21-year-old white female who is 1 month who yesterday developed frequency and urgency to urinate. She thought she had a urinary tract infection but this morning woke up with left flank pain. She came to the ER because of the pain. She had a CT scan done which showed 5 mm right distal ureteral calculus and a 5 mm left distal ureteral calculus she also has a 3 mm calculus in the left kidney. Her pain was significant enough that she required admission for pain control. She is had no fevers or chills no nausea or vomiting.She has been able to void although she said she feels like she has to void frequently Allergies Allergy/AdvReac Type Severity Reaction Status Date / Time ziprasidone [From Alvin] AdvReac Intermediate dystonic Verified 07/27/20 11:50 reaction Home Medications Home Medications Medication Instructions Recorded Confirmed Type Vitamin 1 tab PO DAILY 06/27/20 07/27/20 History acetaminophen [Tylenol] 650 mg PO QID PRN 07/27/20 07/27/20 History biotin 1,000 mcg PO DAILY 07/27/20 07/27/20 History ibuprofen 600 mg PO Q4H PRN 07/27/20 07/27/20 History Patient History Medical History Flank pain H/O bipolar disorder H/O borderline personality disorder History of suicide attempt patient reports happened a few times between the ages of 17 and 19 years old Upper respiratory infection Surgical History H/O hand surgery left hand H/O oral surgery Family History Other Family history non-contributory Social History Smoking Status: Current every day smoker Tobacco Type: Cigarettes Cigarettes Per Day: half pack- pack; Do You Dip or Chew Tobacco: No; Tobacco Cessation Education Requested by Patient: No Hx Alcohol Use: No Hx Substance Use: No Preferred Language: Slovenian Communication Ability: Effective Claim Processing Specialist Required: No Beliefs That Will Affect Care: None marital status: Current Living Situation: Family current occupational status: unemployed Other Information That Helps Us Care for You: No Feels Safe at Home: Yes Safety Concerns: Feels Safe At This Time Review of Systems Review of Systems: All systems reviewed & are unremarkable except as noted in HPI & below Physical Exam Physical Exam: Constitutional Well-developed well-nourished In no acute distress, Healthy appearing Neuro/psych Alert and oriented x3 Normal mood Normal affect Normal coordination Skin Normal color Normal turgor No rashes Warm and Dry Neck Normal visual inspection Pulmonary Clear to auscultation Normal rhythm and effort No respiratory distress No audible wheezes Able to speak in complete sentences Cardiac Regular rate and rhythm without murmur No peripheral edema Results & Data ([facility]) Vital Signs (Past 12 Hours) Vital Signs Temp Pulse Pulse Resp BP BP Pulse Ox 07/27/20 16:28 36.7 C 95 H 16 107/68 98 07/27/20 14:05 66 18 110/70 100 07/27/20 13:09 60 18 105/68 100 07/27/20 11:32 70 18 118/62 100 07/27/20 10:14 65 18 123/62 100 07/27/20 09:40 36.8 C 74 20 119/78 100 Laboratory Results Short CBC 07/27/20 Range/Units 10:05 WBC 8.18 (4.8-10.8) K/uL Hgb 14.4 (12.0-16.0) g/dL Hct 43.1 (37-47) % Plt Count 203 (130-400) K/uL BMP 07/27/20 10:05 Sodium 140 Potassium 3.6 Chloride 109 H Carbon Dioxide 24 BUN 15 Creatinine 0.91 Glucose 98 Calcium 9.2 Liver Function 07/27/20 Range/Units 10:05 Total Bilirubin 0.2 (0.2-1) mg/dl AST 12 L (15-37) U/L ALT 18 (12-78) U/L Alkaline Phosphatase 58 (45-117) U/L Albumin 3.9 (3.4-5.0) gm/dl Urine 07/27/20 07/27/20 Range/Units 09:55 12:31 Urine Color [place] Dark Yellow Urine Appearance Cloudy A Clear (Clear) Urine pH 5.5 5.0 (4.5-7.5) Ur Specific [place] 1.020 > 1.045 H (1.000-1.030) Urine Protein 1+ H Negative (Negative) Urine Glucose (UA) Negative Negative (Negative) PG Care Time/CCT Total # of Minutes Spent Total Time Spent with Patient: Total time spent is greater than 50% in coordination of care (as documented) at patient's floor/unit and/or counseling patient: Coding Level of Care Code 56199 Inpt Consult Level 3 Diagnoses Nephrolithiasis N20.0
[2020-07-27] MEDS: HYDROmorphone INJ 0.5 MG/0.5 ML SYR IV PRN (23:03)
[2020-07-28] MEDS: SODIUM CHLORIDE 0.9% 1000ML 1,000 ML IV SCH ×2 (01:22→12:04)
[2020-07-28 05:50] LABS: Hemoglobin 12.7 g/dL (12.0-16.0); Mean Corpuscular Hemoglobin 31.4 pg (25-34); Mean Corpuscular Hgb Conc 32.6 g/dL (32-36); Mean Corpuscular Volume 96.3 fL (80-100); Mean Platelet Volume 10.6 fL (7.4-10.4); Platelet Count 180 K/uL (130-400); RDW Coefficient of Variation 12.5 % (11.5-14.5); RDW Standard Deviation 44.1 fL (36.4-46.3); Red Blood Count 4.05 M/uL (4.2-5.4); White Blood Count 6.88 K/uL (4.8-10.8)
[2020-07-28 06:26] LABS: BUN Creatinine Ratio 21.3 (10-20); Calcium 7.9 mg/dl (8.5-10.1); Creatinine Clr Calc Pharmacy 120.6 ml/min; Potassium 3.3 mmol/L (3.5-5.1)
--- NOTE | 2020-07-28 06:56 | Anesthesiology Consultation ---
Date of Service July 28, 2020 Assessment & Plan (1) Encounter for pre-operative examination: Chart Review Chart Review: Acceptable Risk for Surgery History Surgery Operation Date: 07/28/20 09:15 Proposed Procedures p Cystoscopy, Bilateral Retrograde Ureteroscopy, Laser Lithotripsy; Bilateral Stent Placement - Gio Min DO Height/Weight Height: 5 ft 9 in Weight: 62 kg Allergies Allergy/AdvReac Type Severity Reaction Status Date / Time ziprasidone [From Geodon] AdvReac Intermediate dystonic Verified 07/27/20 11:50 reaction Medications Home Medications Medication Instructions Recorded Confirmed Last Taken Vitamin 1 tab PO DAILY 06/27/20 07/27/20 07/25/20 acetaminophen [Tylenol] 650 mg PO QID PRN 07/27/20 07/27/20 Unknown biotin 1,000 mcg PO DAILY 07/27/20 07/27/20 07/26/20 ibuprofen 600 mg PO Q4H PRN 07/27/20 07/27/20 07/27/20 Active Medications Generic Name Dose Route Start Last Admin Trade Name Freq PRN Reason Stop Dose Admin Hydromorphone HCl 0.5 mg 07/27/20 16:28 07/27/20 23:03 Hydromorphone Inj 0.5 Mg/0.5 Ml Syr IV 08/10/20 16:27 0.5 mg Q4H PRN Administration Pain Sodium Chloride 1,000 mls @ 125 mls/hr 07/27/20 16:28 07/28/20 01:22 Nss 1000ml IV 07/28/20 16:27 125 mls/hr .Q8H JOSE L Administration Tamsulosin HCl 0.4 mg 07/28/20 09:00 07/27/20 23:04 Tamsulosin Hcl 0.4 Mg Cap PO 08/27/20 08:59 0.4 mg QAM JOSE L Administration NPO Date Last Intake of Fluids: 07/28/20 Time Last Intake of Fluids: 23:59 Date Last Intake of Solids: 07/28/20 Time Last Intake of Solids: 23:59 Past Medical History Medical History Flank pain H/O bipolar disorder H/O borderline personality disorder History of suicide attempt patient reports happened a few times between the ages of 17 and 19 years old Nephrolithiasis Upper respiratory infection Past Family History Family History Other Family history non-contributory Past Surgical History Surgical History H/O hand surgery left hand H/O oral surgery Social History Smoking Status: Current every day smoker tobacco type: cigarettes Smoking cigarettes per day: half pack- pack Do You Dip or Chew Tobacco: No Hx Alcohol Use: No Hx Substance Use: No substance use type: marijuana Last Used Substance: Days (ago) Last Used Substance Other:: used yesterday (patient states she uses this instead of zoloft) Physical Exam Vital Signs Last Vital Signs Temp 36.7 C 07/27/20 23:35 Pulse 63 07/27/20 23:35 Resp 16 07/27/20 23:35 BP 111/73 07/27/20 23:35 Pulse Ox 98 07/27/20 23:35 Testing Laboratory Results 07/28/20 05:19 07/28/20 05:19 Urine Color Dark Yellow 07/27/20 12:31 Urine Appearance Clear (Clear) 07/27/20 12:31 Urine pH 5.0 (4.5-7.5) 07/27/20 12:31 Ur Specific [place] > 1.045 (1.000-1.030) H 07/27/20 12:31 Urine Protein Negative (Negative) 07/27/20 12:31 Urine Glucose (UA) Negative (Negative) 07/27/20 12:31 Urine Ketones Trace (Negative) H 07/27/20 12:31 Urine Nitrite Negative (Negative) 07/27/20 12:31 Ur Leukocyte Esterase Negative (Negative) 07/27/20 12:31 Urine WBC (Auto) 1-5 /hpf (0-5) 07/27/20 12:31 Urine RBC (Auto) >30 /hpf (0-4) H 07/27/20 12:31 U Hyaline Cast (Auto) 1-5 /lpf (0-5) 07/27/20 12:31 U Epithel Cells (Auto) 10-20 /lpf (0-5) H 07/27/20 12:31 Urine Bacteria (Auto) Negative (Negative) 07/27/20 12:31
[2020-07-28] MEDS ORDERED: MIDAZOLAM HCL 1 MG/ML 2ML VIAL ONE (08:10)
[2020-07-28] MEDS ORDERED: fentaNYL citrate 100 MCG/2 ML VIAL ONE ×2 (08:10→10:34)
[2020-07-28] MEDS ORDERED: PROPOFOL IV EMULSION 10 MG/ML 20 ML VIAL IV ONE (08:10)
[2020-07-28] MEDS ORDERED: LIDOCAINE HCL 2% 2 ML VIAL/AMP(20MG/ML) INFIL ONE (08:10)
--- NOTE | 2020-07-28 08:27 | Urology Progress Note ---
Date of Service July 28, 2020 Assessment & Plan (1) Calculus of distal left ureter: (2) Calculus of distal right ureter: 29 year-old female patient, with history of spontaneous vaginal delivery one month ago, admitted due to left flank pain secondary to bilateral obstructing distal ureteral stones. -Remains afebrile. -Keep NPO. -Strain urine. Findings reviewed with Dr. Min. Given her pain the context of an obstructing bilateral distal ureteral stones, will proceed with OR for cystoscopy, bilateral retrograde pyelogram and bilateral stent placement, possible bilateral ureteroscopy, laser lithotripsy, stone basketing, possible ureteral dilation depending on findings. Risks and benefits to be reviewed with patient by Dr. Min. OR notified. EKG in chart. Will give Ancef IV 2g preoperatively. Subjective Examined this morning, feeling okay. Slept well overnight. Currently denies pain, last received IV pain medication late last evening. Denies fevers or chills. Denies nausea or vomiting. Denies dysuria but does report urinary frequency and urgency. States she believes she noted hematuria yesterday. Has not had anything to eat or drink since midnight. Agreeable to proceed with surgical intervention. Chart review: Afebrile Wbc 6.88 Hgb 12.7 Creatinine 0.68 Urine culture pending, currently on IV Ceftriaxone. Denies additional urologic concerns. Review of Systems Constitutional: as per Subjective / HPI; no fever and no chills Gastrointestinal: as per Subjective / HPI; no nausea and no vomiting Genitourinary: as per Subjective / HPI Physical Exam Constitutional: well developed and well nourished; no acute distress and not ill appearing Respiratory: normal respiratory effort and able to speak in complete sentences; no respiratory distress and no audible wheezes Cardiovascular: Extremities: no edema Gastrointestinal (Abdomen): Inspection/Auscultation: abdomen normal to inspection; abdomen not distended Percussion/Palpation: abdomen soft; abdomen nontender and no guarding Psychiatric: Orientation: alert, oriented x 3 and cooperative Affect: euthymic affect Genitourinary: no CVA tenderness Results & Data ([facility]) Vital Signs (Past 12 Hours) Vital Signs Temp Pulse Resp BP Pulse Ox 07/28/20 07:11 36.9 C 82 16 99/64 L 97 07/27/20 23:35 36.7 C 63 16 111/73 98 PG Care Time/CCT Total # of Minutes Spent Total Time Spent with Patient: Total time spent is greater than 50% in coordination of care (as documented) at patient's floor/unit and/or counseling patient: Coding Level of Care Code 49786 Subseq Hosp Care Lvl 2 Diagnoses Calculus of distal left ureter N20.1 Calculus of distal right ureter N20.1
[2020-07-28] MEDS ORDERED: CEFAZOLIN 2000MG 2,000 MG/15 ML SYR IV ONE (08:42)
[2020-07-28] MEDS ORDERED: TAMSULOSIN HCL 0.4 MG CAP PO SCH (09:00)
[2020-07-28] MEDS ORDERED: KETOROLAC 30 MG/ML VIAL IV PRN (09:14)
[2020-07-28] MEDS ORDERED: ONDANSETRON INJ 2 MG/ML 2 ML VIAL IV PRN (09:14)
[2020-07-28] MEDS ORDERED: fentaNYL citrate 100 MCG/2 ML VIAL IV PRN (09:14)
[2020-07-28] MEDS ORDERED: ATROPINE SULFATE 0.1 MG/ML 10ML SYR IV PRN (09:14)
[2020-07-28] MEDS ORDERED: DEXAMETHASONE SOD INJ 4 MG/ML VIAL ONE (09:56)
[2020-07-28] MEDS ORDERED: ONDANSETRON INJ 2 MG/ML 2 ML VIAL ONE (09:56)
[2020-07-28] MEDS ORDERED: CEFAZOLIN 250 MG/ML 1 GM VIAL ONE (10:02)
--- NOTE | 2020-07-28 10:38 | Operative Report ---
PG Post Operative Report Pre & Post Diagnosis Operation Date: 07/28/20 09:15 Pre-Op Diagnosis: RENAL COLIC, Bilateral stones POST: Same with bilateral ureteral stones and left renal stones. I identified the patient and participated in the time-out.: Yes Procedure Operation Date: 07/28/20 09:15 Actual Procedures 1. Cystoscopy 2. Right Retrograde Pyelogram, Ureteroscopy, Ureteral dilation, Basket Stone Extraction and Stent Placement 3. Left Retrograde Pyelogram, Ureteroscopy, Laser Lithotripsy, Basket Stone Extraction and Stent Placement - Gio Min DO Surgeon Gio Min, II, DO Cargo Worker None Estimated Blood Loss 1 Findings Consistent with Post-Op Diagnosis Ureteral Stones destroyed to dust and small fragments and larger fragments removed. Left renal stone destroyed and basketed for removal. Specimens 1. Right Ureteral Stone 2. Left Renal Stone Fragments Drains 6 Fr Multilength without tether bilaterally Anesthesia Type General Complications none Disposition Disposition: Recovery Room Indications Patient with bothersome stones. Risks and benefits discussed at length. Description of Procedure Patient was consented and brought back to the operating room. Patient was placed under anesthesia in the supine position and moved to the dorsal lithotomy position. Patient was prepped and draped in the regular sterile fashion. A time out was completed. A 30degree Cystoscope was placed into the bladder and the entire bladder was examined. The UO's were identified. Each UO was cannulized with a catheter and a retrograde pyelogram was completed. A wire was then placed on each side. One the right, the Rigid ureteroscope was taken into the ureter. The stone was identified. A small stricture/narrowed area was dilated. The stone was grasped with the basket and removed. The rigid scope scope was then placed and taken to the proximal ureter where a sharp bend was discovered. A retrograde pyelogram was completed through the scope and the wire remained as the scope was slowly removed. No issues or problems or additional stones. A 6 Fr multilength stent was placed over the wire and found to be in good position. On the left, the Rigid ureteroscope was taken into the ureter. The stone was identified. A laser fiber was selected and the stones were pulverized to dust and small fragments. A second wire was then placed and the rigid scope removed. The flexible scope was then taken over the second wire and advanced to the proximal ureter and renal pelvis. The entire pelvis was examined and the stones in the renal pelvis were further treated with the laser and basketed for removal. The entire area was once again examined. No residual large fragments or areas of concern were noted. The scope was slowly removed with the wire left in place. Contrast was placed through the scope for a pyelogram to assist in stent placement. The entire ureter was examined as the scope was slowly removed. No obstructions or other areas of concern were noted. With the wire in place, a 6 Fr Double J stent was placed. It was confirmed with fluoroscopy. With the stent in place, the bladder was emptied. The scope was removed. The patient was cleaned, aroused from anesthesia, and transferred to the pacu in stable condition having tolerated the procedure well with no complications. I was present and participated in all aspects of the procedure. The patient will be monitored in the PACU until transferred. I attest to the content of the Intraoperative Record and any orders documented therein. Any exceptions are noted below.
[2020-07-28] MEDS ORDERED: IOTHALAMATE MEGLUMINE II 17.2% 250 ML VIAL INSTIL ONE (10:44)
--- NOTE | 2020-07-28 10:48 | Fluoroscopy Report ---
FL retrograde includes kub HISTORY: B/L CYSTO/LASER/STENT FLUOROSCOPY TIME: 1 minute and 8 seconds FINDINGS: 5 fluoroscopic spot images were submitted for review. Bilateral retrograde opacification of the ureter/renal collecting systems with placement of bilateral ureteral stents. The stents appear a nd good position. IMPRESSION: Fluoroscopy provided for bilateral ureteral stent placement. ACT 112: Negative or not required by law. Electronically signed by: Héctor Gama M.D. 07/28/2020 10:46 AM
--- NOTE | 2020-07-28 11:37 | Anesthesiology Progress Note ---
Date of Service July 28, 2020 Anesthesia Post Procedure Vital Signs Vital Signs: Temp Pulse Pulse Resp BP Pulse Ox 07/28/20 11:25 36.6 C 60 15 102/65 97 07/28/20 11:15 64 15 106/71 97 07/28/20 11:05 88 18 101/64 100 07/28/20 10:55 66 12 101/47 L 100 07/28/20 10:47 36.6 C 76 20 107/61 100 07/28/20 09:01 36.7 C 63 18 104/74 98 07/28/20 07:11 36.9 C 82 16 99/64 L 97 07/27/20 23:35 36.7 C 63 16 111/73 98 07/27/20 16:28 36.7 C 95 H 16 107/68 98 07/27/20 14:05 66 18 110/70 100 07/27/20 13:09 60 18 105/68 100 Pain Intensity Left Flank: Pain Intensity: 3 Transfer of Care Handoff Completed per policy Notes Mental Status: alert / awake / arousable Patient Amnestic to Procedure: Yes Nausea / Vomiting: adequately controlled Pain: adequately controlled Airway Patency, RR, SpO2: stable & adequate BP & HR: stable & adequate Hydration State: stable & adequate Anesthetic Complications: no major complications apparent
[2020-07-28] MEDS ORDERED: TAMSULOSIN HCL 0.4 MG CAP PO ONE (12:23)
[2020-07-28] MEDS: HYDROmorphone INJ 0.5 MG/0.5 ML SYR IV PRN (12:28)
[2020-07-28] MEDS ORDERED: POTASSIUM CHLORIDE 20 MEQ TABCR PO ONE (12:56)
[2020-07-28] MEDS ORDERED: NSS + 20MEQ KCL 20 MEQ/1,000 ML BAG IV SCH (13:00)
[2020-07-28] MEDS ORDERED: cefTRIAXone SODIUM 1,000 MG in DEXTROSE 5% 50 ML IV SCH (14:00)
--- NOTE | 2020-07-28 14:17 | Hospitalist Progress Note ---
Date of Service July 28, 2020 Assessment & Plan (1) Calculus of distal right ureter: (2) Calculus of distal left ureter: (3) Hydronephrosis, left: (4) Renal colic: Patient is a 29 yr female with H/O Anxiety presented with Left flank pain, Urinary frequency,urgency and hematuria. Obstructive Uropathy Renal Colic --CT ABD:Bilateral distal ureteral stones as described above resulting in minimal right and mild left hydronephrosis. Left-sided nephrolithiasis. Mildly enlarged and slightly heterogeneous uterus. This may be secondary to the patient's post gravid state. Trace pelvic free fluid. --S/P Right Retrograde Pyelogram, Ureteroscopy, Ureteral dilation, Basket Stone Extraction and Stent Placement and Left Retrograde Pyelogram, Ureteroscopy, Laser Lithotripsy, Basket Stone Extraction and Stent Placement .. POD Day #0 --Urine Culture:No growth --Received IV fluids --Pain Control, Flomax --Appreciate Urology Input --Needs follow up with Urology upon discharge Hypokalemia Replete electrolytes as needed DVT Px: SCDs Code Status Full Code Disposition: Plan to discharge home today Admission and Anticipated Discharge Date Admission Date: July 27, 2020 Subjective Patient is seen and examined at bedside Complains of mild dysuria, transient hematuria after stent placement Discussed with urology today Urine culture showed no growth Denies any chest pain, shortness of breath, dizziness, nausea, abdominal pain Tolerated diet Review of Systems Review of Systems: All systems reviewed & are unremarkable except as noted in HPI & below Physical Exam Physical Exam: Physical Exam: Vitals signs as noted above General Appearance:Moderately built and nourished, no apparent distress Head: normocephalic, Atraumatic Eyes: normal inspection, EOMI Neck: supple, Trachea midline Respiratory/Chest: Normal breath sounds, CTA Cardiovascular: S1, S2, No murmur Abdomen/GI:Soft, Non tender, Bowel sounds present Extremities/Musculoskelatal:normal inspection, no edema Neurologic/Psych:AAOX3, grossly no focal neurological deficits Skin: normal color, warm Results & Data Results & Data ([facility]) Vital Signs (Past 12 Hours) Vital Signs Temp Pulse Pulse Resp BP Pulse Ox 07/28/20 13:00 36.7 C 73 18 118/70 99 07/28/20 12:31 36.5 C 76 16 94/55 L 96 07/28/20 11:50 36.7 C 69 16 105/68 97 07/28/20 11:35 59 L 16 96/69 L 97 07/28/20 11:25 36.6 C 60 15 102/65 97 07/28/20 11:15 64 15 106/71 97 07/28/20 11:05 88 18 101/64 100 07/28/20 10:55 66 12 101/47 L 100 07/28/20 10:47 36.6 C 76 20 107/61 100 07/28/20 09:01 36.7 C 63 18 104/74 98 07/28/20 07:11 36.9 C 82 16 99/64 L 97 Laboratory Results Short CBC 07/28/20 Range/Units 05:19 WBC 6.88 (4.8-10.8) K/uL Hgb 12.7 (12.0-16.0) g/dL Hct 39.0 (37-47) % Plt Count 180 (130-400) K/uL BMP 07/28/20 05:19 Sodium 142 Potassium 3.3 L Chloride 114 H Carbon Dioxide 22 BUN 15 Creatinine 0.68 Glucose 84 Calcium 7.9 L
--- NOTE | 2020-07-28 14:35 | Discharge Summary ---
Date of Service July 28, 2020 Admission HPI Per Admitting Provider Pt is 29 y/o F with PMH anxiety presented to ER with c/o Left flank pain today. Pt is one month post vaginal delivery. She states yesterday started with some urinary frequency and urgency without any dysuria or noted hematuria. She states has some residual slight pink colored discharge s/p vaginal delivery however that is almost resolved. Today with sudden onset left flank pain with radiation LLQ. Upon ER arrival noted some hematuria and dysuria. Has been doing well since her delivery without abdominal pain or other symptoms until today. H/O kidney stone with prior that was able to self expel. Pt not currently . Denies fever/chills, diaphoresis, N/V/D/C, GARCIA, dizziness, syncope, vision changes, neck pain, CP, SOB, orthopnea, palpitations, cough, sore throat, choking, otalgia, rhinorrhea, paresthesias, weakness, extremity weakness, extremity edema, rashes. Admission Exam Per Admitting Provider General: no distress at this time, WDWN Head: normocephalic, atraumatic Eyes: PERRL, EOM's intact, conjunctiva non-injected, anicteric ENT: normal inspection external ears, nose, mucous membranes moist Neck: supple, trachea midline Lungs: clear, no respiratory distress, no wheezing/rhonchi/rales CV: RRR, no murmur, no pretibial edema Abd: normal BS, soft, non-tender to palpation at this time, no CVA tenderness to percussion at this time Ext: no cyanosis, no calf tenderness Neuro: A&O x 3, no focal deficits noted, normal affect Skin: warm, dry Principal Diagnosis Obstructive Uropathy Renal Colic Nephrolithiasis Hypokalemia Discharge Data Allergies Allergy/AdvReac Type Severity Reaction Status Date / Time ziprasidone [From Alvin] AdvReac Intermediate dystonic Verified 07/27/20 11:50 reaction Consultations 07/27/20 12:31 ED Decision to Admit Stat 07/27/20 16:28 Consult Urology Routine Procedures Performed Operation Date: 07/28/20 09:15 Actual Procedures p Cystoscopy, Right Retrograde Ureteroscopy, Ureteral Dilation, Basket Stone Extraction and Stent Placement; Left retrograde Ureteroscopy, Laser Lithotripsy, Basket Stone Extraction, and Stent Placement(Bilateral) - Gio H. Min, DO --CT ABD:Bilateral distal ureteral stones as described above resulting in minimal right and mild left hydronephrosis. Left-sided nephrolithiasis. Mildly enlarged and slightly heterogeneous uterus. This may be secondary to the patient's post gravid state. Trace pelvic free fluid. Ordered Studies 07/27/20 09:57 CT abd pelvis IV con only Stat 07/28/20 09:15 FL retrograde includes kub Routine Hospital Course (1) Calculus of distal right ureter: (2) Calculus of distal left ureter: (3) Hydronephrosis, left: (4) Renal colic: Patient is a 29 yr female with H/O Anxiety presented with Left flank pain, Urinary frequency,urgency and hematuria. Obstructive Uropathy Renal Colic --CT ABD:Bilateral distal ureteral stones as described above resulting in minimal right and mild left hydronephrosis. Left-sided nephrolithiasis. Mildly enlarged and slightly heterogeneous uterus. This may be secondary to the patient's post gravid state. Trace pelvic free fluid. --S/P Right Retrograde Pyelogram, Ureteroscopy, Ureteral dilation, Basket Stone Extraction and Stent Placement and Left Retrograde Pyelogram, Ureteroscopy, Laser Lithotripsy, Basket Stone Extraction and Stent Placement .. POD Day #0 --Urine Culture:No growth --Received IV fluids --Pain Control, Flomax --Appreciate Urology Input --Needs follow up with Urology upon discharge Hypokalemia Replete electrolytes as needed State Currently not breast feeding DVT Px: SCDs Code Status Full Code Disposition: Plan to discharge home today Total Time Total Time Spent Total Time Spent (In Minutes): 40 minutes Total Time Includes: Examination of the Patient, Discharge Planning, Medication Reconciliation, Communication With Other Providers and Other Discharge Plan Discharge Items Patient Disposition: Home - Self-Care Reason For Visit: RENAL COLIC Discharge Diagnosis: Obstructive Uropathy Renal Colic Nephrolithiasis Hypokalemia Activity: Per Instructions section Exercise/Sports: Gradually increase as tolerated Non-emergency contact: Primary Care Provider and Urologist Call non-emergency contact if: you have any medication questions, your symptoms worsen, your pain is not controlled, your pain is worsening, your pain is un usual for you, your pain is concerning for you and you have a fever Follow-up/Referrals: PCP,NO [Primary Care Provider] - Diet: Regular Addtl Attending Provider Instructions: Follow-up with your primary care physician in 1 week Follow-up with your urologist Dr. Gio Min in 1-2 weeks as recommended by your Urologist Complete antibiotic course cefuroxime 500 mg twice a day for 3 days Seek immediate medical attention if your symptoms reoccur or worsen Pending Studies at Discharge: No Stand-Alone Forms: [facility] Check-Cap, Smoking Cessation Medications and DC Order Prescriptions: New tamsulosin 0.4 mg Capsule 0.4 mg PO QAM Qty: 15 RF: 0 cefuroxime axetil 500 mg Tablet 500 mg PO BID Qty: 6 RF: 0 Continued Vitamin 27 mg iron- 0.8 mg Tablet 1 tab PO DAILY RF: 0 acetaminophen [Tylenol] 325 mg Tablet 650 mg PO QID PRN (Reason: Pain) RF: 0 biotin 1,000 mcg Tablet,Chewable 1,000 mcg PO DAILY RF: 0 ibuprofen 600 mg tablet 600 mg PO Q4H PRN (Reason: fever/pain) RF: 0 Discharge Orders: Discharge Order (Routine); Ordered 07/28/20 Ordered By: Tru Esquivel/Other Patient Handouts: Having a Ureteral Stent Admission Data Admit Date/Time: 07/27/20 13:15 Attending Provider: Tru Jones Admit Provider: Anthony Wright Primary Care Provider: PCP,JACQUIE Other Providers: Anthony Wright ; Jono Sheets Other Interventions: Discharge Summary Assessment (RN) Last Done: 07/28/20 14:56
[2020-07-28] MEDS ORDERED: cefUROXime axetil 500 MG TAB PO SCH (21:00)
[2020-08-02 11:11] LABS: Component 2 DNR; Source KIDNEY
[2020-08-02 13:26] LABS: Component 2 DNR; Source KIDNEY
== END 2020-07-28 15:52 | disposition home or self-care (01) | DRG 669 ==
LOC: ED 09:32 → SUATTDRO 13:15 → 3W 13:15